=== PATIENT | male | born 1985 ===

== ENCOUNTER 2024-05-25 10:06 | Outpatient (CLI) | payer MEDICAID, SELFPAY ==
[2024-05-25 10:21] VITALS: BP 117/76; PULSE 76; RESP 18; TEMP 36.8; O2SAT 98
[2024-05-25 10:43] VITALS: BP 144/80; PULSE 68; PULSE 72; RESP 8; O2SAT 97
[2024-05-25 10:44] VITALS: PULSE 70; RESP 11; O2SAT 97
[2024-05-25 10:46] VITALS: BP 125/82; PULSE 71; PULSE 80; RESP 9; O2SAT 96
[2024-05-25 10:50] VITALS: PULSE 71; RESP 12; O2SAT 96
--- NOTE | 2024-05-25 10:57 | PDOC.PAIN ---
Date of service: 05/25/24 Time of Service: 10:57 Pain Managment Procedure Note Procedure Note Procedure Note: INTRA-ARTICULAR FACET JOINT INJECTION Tomas Santiago has been referred to the [facility] for intra-articular lumbar facet joint injection. COMMENTS: I previously evaluated him in the clinic. Dx: Lumbar spondylosis without myelopathy Pre-procedure Pain VAS: 7/10 with provocation Patient was interviewed and the medical record reviewed. There were no medical, pharmacologic, radiographic or other structural contraindications to attempting fluoroscopically guided intra-articular lumbar facet joint injection. Risks and expected side effects as well as potential benefit of the procedure were reviewed and voiced concerns addressed. The printed consent form was signed and witnessed. Standard time-out procedure was performed. Patient was placed in the prone position on the fluoroscopy table and automated blood pressure cuff and pulse oximeter applied. The skin entry point for approaching bilateral facet joints at L5-S1 was identified under the most advantageous fluoroscopic view and marked. Following thorough Chlorhexadine preparation of the skin and draping and 1% lidocaine infiltration of the skin entry point and subcutaneous tissues, a 22 gauge spinal needle was placed under fluoroscopic guidance into bilateral facet joint. Intra-articular placement was confirmed by a clear arthrogram resulting from the injection of 0.25ml Omnipaque 240. 40mg Depomedrol (80 mg/cc) followed by 1 cc of 2% Lidocaine were injected intra-articularily with an initial reproduction of a significant component of the usual pain. Vital signs were stable throughout the procedure and were as recorded in the docflowsheet by the nursing staff. If given, dosages of intravenous drugs for anxiolysis and analgesia were documented in MAR. Follow up plans and appointments were discussed. Post procedure instruction was given as documented in nursing documentation and having met discharge criteria,was discharged from the [facility]. COMMENTS: Post-procedure pain VAS was 3/10. Greg Pete DO, MPH [facility] [place]-[facility] CC: RUTH PALOMO
--- NOTE | 2024-05-25 10:59 | DI.RAD_ITS ---
Exam(s) XR PAIN CLINIC LUMBAR SP 2V EXAM: XR PAIN CLINIC LUMBAR SP 2V CLINICAL HISTORY: DX: Lumbar Spondylosis TECHNIQUE: 2D and realtime digital imaging was performed. CONTRAST MATERIAL: Refer to procedure report. COMPARISON: No exams were available for comparison FINDINGS: Fluoroscopy was provided for Dr. Pete during the performance of a bilateral lumbar facet injection. Please refer to the procedure report for complete details. Ka,r=9.03 mGy IMPRESSION: RADIATION DOSE DELIVERED: 0.0 0.0 0
[2024-05-25] MEDS: Nerve Block Tray 1 EACH MC (11:02)
[2024-05-25] MEDS: methylPREDNISolone ACETATE 80 MG/ML VIAL IJ (11:02)
[2024-05-25] MEDS: Lidocaine 2% Pres-Free 5 ML VIAL IJ (11:03)
[2024-05-25] MEDS: Omnipaque 240 MG/ML 50 ML BTL IJ (11:03)
== END 2024-05-25 10:07 | disposition home or self-care (01) ==
LOC: PC 10:06
PROVIDERS: PCP Family Medicine; Visit Provider Preventive Medicine Occupational Medicine
DX: M47.816 Spondylosis without myelopathy or radiculopathy, lumbar region (principal)
CPT/HCPCS: 64493; 72100; J1010; Q9967

== ENCOUNTER 2024-07-10 14:33 | Outpatient (REF) | payer MEDICAID, SELFPAY ==
[2024-07-10 18:04] LABS: Bilirubin Negative (Negative); Blood Trace-lysed (Negative); Clarity Cloudy (Clear); Glucose Negative (Negative); Ketones Negative (Negative); Leukocyte Esterase Negative (Negative); Nitrite Negative (Negative); Specific Gravity >= 1.030 (1.005-1.025); Urobilinogen 0.2 mg/dL (Up to 0.2)
[2024-07-10 18:12] LABS: Bacteria Many HPF (Negative); Epithelial Cells Rare HPF (Negative)
[2024-07-10 18:13] LABS: C & S Indicated? No; Casts Negative LPF (Negative); Crystals Few Amorphous HPF (Negative); Mucus Trace (Negative)
== END 2024-07-10 14:34 | disposition home or self-care (01) ==
LOC: LBN 14:33
PROVIDERS: PCP Family Medicine; Visit Provider Nurse Practitioner Gerontology
DX: R39.9 Unspecified symptoms and signs involving the genitourinary system (principal)
CPT/HCPCS: 81003; 81015

== ENCOUNTER 2024-08-31 12:17 | Outpatient (CLI) | payer MEDICAID, SELFPAY ==
[2024-08-31 12:37] VITALS: BP 116/84; PULSE 85; RESP 18; TEMP 37.1; O2SAT 98
[2024-08-31 13:07] VITALS: PULSE 84; O2SAT 98
[2024-08-31 13:08] VITALS: BP 111/87; PULSE 81; PULSE 83; RESP 10; O2SAT 97
[2024-08-31 13:10] VITALS: PULSE 87; RESP 10; O2SAT 97
[2024-08-31 13:16] VITALS: BP 137/88; PULSE 87; PULSE 88; RESP 12; O2SAT 98
[2024-08-31 13:20] VITALS: PULSE 84; PULSE 85; RESP 9; O2SAT 97
[2024-08-31] MEDS: Omnipaque 240 MG/ML 50 ML BTL IJ (13:30)
[2024-08-31] MEDS: Nerve Block Tray 1 EACH MC (13:30)
[2024-08-31] MEDS: Bupivacaine 0.5% Pres-Free 10 ML VIAL IJ (13:31)
--- NOTE | 2024-08-31 15:48 | PDOC.PAIN ---
Date of service: 08/31/24 Time of Service: 13:00 Pain Managment Procedure Note Procedure Note Procedure Note: PROCEDURE NOTE Bilateral Lumbar Medial Branch Blocks #2 Date of Service: August 31, 2024 Patient: Tomas Santiago Provider: Greg Pete DO, MPH Tomas Santiago has been referred to the [facility] for lumbar medial branch blocks. Pre-operative diagnosis: Lumbar Spondylosis without Myelopathy ICD-10 M47.816 Post-operative diagnosis: Same Pre-procedure pain: VAS= 6/10 COMMENTS: He did well with the first set of blocks using the intra-articular approach. Tomas? was interviewed and the medical records were reviewed. There were no medical, pharmacologic, radiographic or other structural contraindications to attempting fluoroscopically guided local anesthetic lumbar medial branch blocks. Risks and potential side effects were discussed. I also discussed the potential benefit(s) of the procedure with Tomas, and voiced concerns were addressed. After Tomas was completely informed about the procedure, the printed consent form was signed. A standard time-out procedure was performed. Tomas was placed in the prone position on the fluoroscopy table. Automated blood pressure cuff and pulse oximeter were applied. The skin entry points for approaching the anatomic target points of the segmental medial branches of bilateral L4,L5 were identified with fluoroscopy and marked. The skin at the target site area was thoroughly prepared with Chlorhexadine. The skin was then draped. Next, a 25 gauge 3.5 spinal needle was placed under fluoroscopic guidance down on to the target point (the articular pillar) for each respective segmental medial branch. Position was confirmed in A/P and lateral views. Aspiration revealed no blood or clear fluid. Next, 0.25ml of omnipaque 240 was injected at each level. No contrast following a vascular or neural pattern was visualized under continuous fluoroscopy. Next, 0.25 ml of preservative-free 0.5% bupivicaine was injected at each level. There was no unusual discomfort expressed by Tomas. The needles were withdrawn without difficulty. (49 mls of Omnipaque was wasted) Tomas was observed and was without hemodynamic, neurologic, or allergic reactions.? Fluoroscopic images were digitally archived. Provacative testing using the Modified Nuno's facet loading test- Left side Right Side Directly before the block VAS (0-10) = 6/10 VAS (0-10) = 6/10 Five minutes after the block VAS (0-10) = 1/10 VAS (0-10) = 1/10 Percentage relief obtained with this diagnostic block 90% 90% Any improved physical functioning directly after the blocks? Able to move his back with almost no pain Follow up plans and appointments were discussed with Tomas. Tomas was instructed to keep careful note of how the usual pain was modified by these injections. Specifically, to keep a pain diary for the next 4 hours using a numeric pain scale of 0-10 and report these results. Post procedure instruction was given as documented in the nursing documentation and having met discharge criteria, the patient was discharged from the [facility]. Based on the medial branches blocked today, if they patient has adequate relief and we are able to proceed to radiofrequency ablation, the treatment should result in the denervation of the bilateral L5-S1 facet joints. We would expect to denervate a total of 2 facets during the radiofrequency ablation. COMMENTS: No apparent complications. Post-procedure pain: VAS= 1/10 Tomas will call back with 0-4 hour post-procedure pain scores. I personally performed the entire procedure. GREG PETE DO, MPH [employer]-subspecialty board certification in Pain Medicine [facility] [facility]
--- NOTE | 2024-08-31 18:00 | DI.RAD_ITS ---
Exam(s) XR PAIN CLINIC LUMBAR SP 2V EXAM: XR PAIN CLINIC LUMBAR SP 2V CLINICAL HISTORY: DX: Lumbar Spondylosis TECHNIQUE: 2D and realtime digital imaging was performed. Radiologist not present. CONTRAST MATERIAL: None. COMPARISON: No exams were available for comparison FINDINGS: Fluoroscopy was provided for pain management therapy. Please refer to procedure report or details. Radiation Exposure Index: Ka,r=13.19 mGy IMPRESSION: As above. RADIATION DOSE DELIVERED:
== END 2024-08-31 12:18 | disposition home or self-care (01) ==
LOC: PC 12:17
PROVIDERS: PCP Family Medicine; Visit Provider Preventive Medicine Occupational Medicine
DX: M47.816 Spondylosis without myelopathy or radiculopathy, lumbar region (principal)
CPT/HCPCS: 64493; 72100; J0665; Q9967

== ENCOUNTER 2024-10-12 11:31 | Outpatient (CLI) | payer MEDICAID, SELFPAY ==
[2024-10-12] VITALS (16 sets, daily range): BP systolic 117–136; BP diastolic 69–97; PULSE 67–87; RESP 13–21; TEMP 37; O2SAT 95–98
[2024-10-12] MEDS: Midazolam 2 MG/2 ML VIAL IVP (12:20)
[2024-10-12] MEDS: fentaNYL 100 MCG/2 ML VIAL IVP (12:20)
[2024-10-12] MEDS: Lactated Ringers 500 ML 80 ML IV (12:45)
[2024-10-12] MEDS: Bupivacaine 0.5% Pres-Free 10 ML VIAL IJ (13:04)
[2024-10-12] MEDS: methylPREDNISolone ACETATE 40 MG/ML VIAL IJ (13:05)
[2024-10-12] MEDS: Lidocaine 2% Pres-Free 5 ML VIAL IJ (13:05)
--- NOTE | 2024-10-12 13:05 | DI.RAD_ITS ---
Exam(s) XR PAIN CLINIC LUMBAR SP 2V EXAM: XR PAIN CLINIC LUMBAR SP 2V CLINICAL HISTORY: DX: Lumbar Spondylosis. TECHNIQUE: Fluoroscopy was provided for the referring physician for guidance with performing pain cl inic injection procedure. COMPARISON: No exams were available for comparison FINDINGS: Please see procedure note for details. Fluoro time: 72.8 seconds RADIATION DOSE DELIVERED: Ednar=18.54 mGy
--- NOTE | 2024-10-12 13:06 | PDOC.PAIN_ITS ---
Date of service: 10/12/24 Time of Service: 13:06 Pain Managment Procedure Note Procedure Note Procedure Note: PROCEDURE NOTE BILATERAL LUMBAR RADIOFREQUENCY ABLATION Date of Service: October 12, 2024 Patient:? Tomas Santiago? Provider:? Greg Lopez DO, MPH Tomas Santiago has been referred to the [facility] for Bilateral Lumbar Radiofrequency Ablation with the [employer] Machine.? Pre Operative Diagnosis: Lumbosacral Spondylosis without Myelopathy ICD-10 M47.816 Post Operative Diagnosis: Same Pre procedure pain; VAS= 7/10 Comments: Great relief with LMBBs X 2 (05/25/24 and 08/31/24) PROCEDURE: Radiofrequency Ablation of medial branches - bilateral L3, L4, L5 and lateral branches of bilateral S1. Tomas?was interviewed and the medical record was reviewed.? There were no medical, pharmacologic, radiographic or other structural contraindications to attempting fluoroscopically guided BILATERAL Lumbar Radiofrequency Ablation.?Risks and expected side effects as well as potential benefit of the procedure were reviewed with Tomas, and the patient's voiced concerns were addressed.? The printed consent form was signed.? Standard time-out procedure was performed. Tomas was brought into the fluoroscopy suite and positioned into the prone position on the fluoroscopy table and allowed to adjust to a position of comfort. A grounding pad was placed on the left abdomen. The sterile field was prepared using chlorhexidine preparation of the skin and sterile draping. Local anesthesia superficial and deep was provided by local infiltration of 2% lidocaine. A 17g 100 mm radiofrequency introducer needle was placed to the planned anatomic targets guided with intermittent fluoroscopy with a perpendicular approach to terminally place at the junction of the superior articular process and the transverse process of the bilateral L4, L5, the base of the sacral ala on the bilateral for the L5 medial branch nerve and the area between base of the sacral ala to the S1 foramen bilaterally. The stylets were removed and radiofrequency probes with a 4mm active tip were then inserted. Needle tip position of the probes was verified in the AP, oblique, and lateral views. At each site, the medial branch nerve was stimulated at 2 Hz to a maximum 1-2 volts determined to finalize safe needle and electrode placement. The patient was awake and responsive during this portion of the procedure. Each target was anesthetized with 1-2 mL of 2 % Lidocaine for anesthesia for lesioning and then each target was lesioned at 80 degrees Celsius for 2 minutes and 30 seconds. Tissue impedances were noted to be between 250 and 500 Ohms. Next, I injected 1/4 cc of Depomedrol (40 mg/cc) followed by 1 cc of 0.5% Bupivacaine to each segmental sensory nerve. There was no unusual discomfort expressed by Tomas. The needles were withdrawn without difficulty and bandages placed over the needle placement sites, the patient was observed and was without hemodynamic, neurologic, or allergic reactions. Fluoroscopic images were digitally archived. POST PROCEDURE EVALUATION: IMPRESSION: 1. Summary of procedure. Medication given is documented in the MAR. 2. Follow up plan: Tomas to contact [facility] as needed.?This procedure may be repeated if the patient achieves at least 50% improvement in pain/function for at least 6 months. 3. Estimated Blood Loss: <5 mls 4. Fluoroscopy time: Documented in the EMR. Follow up plans and appointments were discussed with the Tomas. Post procedure instruction was given as documented in nursing documentation and having met discharge criteria, Tomas was discharged from the [facility]. This advanced procedure uses cooled radiofrequency energy to safely target the sensory nerves responsible for sending pain signals.1 A radiofrequency generator transmits a small current of Radiofrequency energy through an insulated electrode, or probe, placed within tissue. Ionic heating, produced by the friction of charged molecules, thermally deactivates the nerves responsible for sending pain signals to the brain. Radiofrequency energy heats and cools the tissue at the site of pain. Unlike other Radiofrequency procedures, Coolief circulates water through the device while heating nervous tissue to create a larger treatment area, increasing the opportunity to help with pain. This combination targets the pain- transmitting nerves without excessive heating, leading to pain relief. COMMENTS: No apparent complications. Post-procedure pain: VAS= 4/10. I personally completed the entire procedure. GREG LOPEZ DO, MPH [employer] - Subspecialty board certification in Pain Medicine [facility] Coding Conscious Sedation used for procedure: Yes CPT Codes: Single Facet Joint, Lumbar/Sacral *BILATERAL* - 052879X ([id number]~G) Single Facet Joint, Lumbar/Sacral cool each add'l - 54564V ([id number]~G) Additional Codes: Date of Service (63327) Date of service: 10/12/24
== END 2024-10-12 11:32 | disposition home or self-care (01) ==
LOC: PC 11:32
PROVIDERS: PCP Nurse Practitioner Family; Visit Provider Preventive Medicine Occupational Medicine
DX: M47.816 Spondylosis without myelopathy or radiculopathy, lumbar region (principal)
CPT/HCPCS: 64635; 64636; 72100; J0665; J1010; J2250; J3010

== ENCOUNTER 2025-01-08 07:57 | Outpatient (CLI) | payer MEDICAID, SELFPAY ==
--- NOTE | 2025-01-08 07:45 | RT.EKG_ITS ---
APPROVED REPORT Exam: Resting ECG Reason for Exam: palpitations Patient Location: O HR:88 bpm ECG Measurements Heart Rate 88 AXIS HI 136 P 58 QRSd 86 QRS 17 QT 322 T 9 QTc 390 Conclusion Sinus rhythm...normal P axis, V-rate 50- 99 Normal Electrocardiogram
== END 2025-01-08 07:58 | disposition home or self-care (01) ==
LOC: DI.CARD 07:57
PROVIDERS: PCP Nurse Practitioner Family; Visit Provider Registered Nurse
DX: R00.2 Palpitations (principal)
CPT/HCPCS: 93010

== ENCOUNTER 2025-03-29 03:16 | Outpatient (CLI) | payer MEDICAID, SELFPAY ==
--- NOTE | 2025-03-29 12:30 | DI.US_ITS ---
APPROVED REPORT EXAM: Comprehensive 2D, Doppler, and color-flow Echocardiogram Patient Location: Out-Patient Pipe Turner: Melvin Barnard RDCS (AE) Indications: Chest pain, dyspnea, SVT Other Information Study Quality: Adequate Conclusion Normal left ventricular wall thickness and chamber size. Ejection fraction is 60%. Wall motion is normal Normal right ventricular size and function Both atria are normal in size There are no structural valvular abnormalities Trace to mild mitral regurgitation Mild tricuspid regurgitation. Estimated right ventricular systolic pressure is 18 mmHg Wall motion Left Ventricle The left ventricle is normal size. The left ventricular systolic function is normal. The left ventricular ejection fraction is within the normal range. There is normal left ventricular wall thickness. There is normal LV segmental wall motion. There is no ventricular septal defect visualized. LVEF is 60%. Right Ventricle The right ventricle is normal size. The right ventricular systolic function is normal. Atria The left atrium size is normal. The right atrium size is normal. The interatrial septum is intact with no evidence for an atrial septal defect. Aortic Valve The aortic valve is normal in structure. Aortic valve is trileaflet. There is no aortic valvular stenosis. No aortic regurgitation is present. Mitral Valve The mitral valve is normal in structure. No evidence of mitral valve stenosis. Trace to mild mitral regurgitation. Tricuspid Valve The tricuspid valve is normal in structure. There is no tricuspid valve stenosis. Mild tricuspid regurgitation. The RVSP is 18.2 mmHg. Pulmonic Valve The pulmonary valve is normal in structure. There is no pulmonic valvular stenosis. Mild pulmonic regurgitation. Great Vessels The aortic root is normal in size. The ascending aorta is normal in size. Aortic arch is normal in caliber. IVC is normal in size and collapses >50% with inspiration. Pericardium There is no pericardial effusion. 2D Dimensions IVSD d PLAX 0.68 cm M: 0.6-1.2 Ao Root d 2.81 cm M: 3.1 - 3.7 LVPW d PLAX 0.71 cm M: 0.6 - 1.2 Ao Asc Diam d 3.03 cm M: 2.6 - 3.4 LVID d PLAX 4.54 cm M: 4.2 - 5.8 LVDs 3.09 cm M: 2.5 - 4.0 LV EF Teichholz 60.0 % FS 31.82 % LV EDV (Teich) 94.2 mL LV ESV (Teich) 37.7 mL Stroke Vol Index (Teich) 27.18 M-Mode TAPSE 1.97 cm (M/F) >1.7 Auto EF LV EDV A4C 122.6 mL LV EDV A2C 116.9 mL LV EDV BP 124.7 mL LV ESV A4C 54.0 mL LV ESV A2C 47.2 mL LV ESV BP 53.2 mL LVEF(%) A4C 56.0 % LVEF(%) A2C 59.6 % LVEF(%) BP 57.4 % LV SV A4C 68.6 ml LV SV A2C 69.7 ml LV SV BP 71.6 ml LV CO A4C 4.4 L/min LV CO A2C 4.4 L/min LV CO BP 4.4 L/min HR A4C 64.06 BPM HR A2C 63.49 BPM LV EDV Index (BP) LA Volume LA Length A4C 5.5 cm LA Length A2C 5.0 cm LA Area A4C s 14.78 cm2 LA Area A2C s 15.54 cm2 LA Vol A4C A-L 33.66 mL LA Vol A2C A-L 41.23 mL LA Vol Biplane A-L 39.2 mL LA Vol/BSA A4C A-L LA Vol/BSA A2C A-L LA Vol/BSA BP A-L 18.9 mL/m2 LA Vol A4C MOD 31.8 mL LA Vol A2C MOD 38.8 mL LA Vol BP MOD 36.6 mL RA Volume RA Area A4C 9.2 cm2 RA ESV A4C (A-L) 15.8mL RA Vol/BSA A4C A-L RA Length A4C 4.5 cm RA ESV A4C (MOD) 16.3mL LV Diastology MV E' medial 0.142 (>0.07 m/s) MV E Vmax 0.71 (0.4-1.3 m/s) MV E/E' MED 5.02 (<14) MV A Vmax 0.35 (0.4-1.3 m/s) MV E' lateral 0.170 (>0.1 m/s) E/A Ratio 2.0 MV E/E' LAT 4.20 (<14) MV E' Average 0.156 m/s MV E/E'(average) 4.58 Aortic Valve AoV Vmax 0.97 m/s LVOT Vmax 0.92 m/s AoV Peak Grad 3.8 mmHg LVOT Peak Grad 3.4 mmHg AoV Area (Vmax) 3.85 cm2 LVOT VTI 0.181 m AoV VTI 0.202 m LVOT Mean Grad 2.1 mmHg AoV Mean Shane. 0.66 m/s LVOT SV 73.47 mL AoV Mean Grad 2.0 mmHg LVOT Diam s 2.25 cm AoV Area (VTI) 3.63 cm2 AV Regurg Peak Gr. 3.75 mmHg Velocity Ratio 0.95 Mitral Valve MV DT 205 (160-240 msec) Pulmonary Valve PV Vmax 0.85 (0.5-1.5 m/s) RVOT Vmax 0.79 m/s PV Peak Grad 2.9 mmHg RVOT Peak Gr. 2.5 mmHg PV Mean Shane 0.71 m/s RVOT VTI 0.157 m PV Mean Grad 2.1 mmHg RVOT Mean Gr. 1.6 mmHg Tricuspid Valve RA Pressure 3.00 mmHg TR Vmax 1.95 m/s TR Peak Grad 15.2 mmHg RVSP (TR) 18.2 mmHg
== END 2025-03-29 03:36 ==
LOC: DI 03:16
PROVIDERS: PCP Nurse Practitioner Family; Visit Provider Internal Medicine Cardiovascular Disease
DX: I47.10 Supraventricular tachycardia, unspecified (principal); R07.9 Chest pain, unspecified; R06.00 Dyspnea, unspecified
CPT/HCPCS: 93306

== ENCOUNTER 2025-04-09 07:23 | Outpatient (CLI) | payer MEDICAID, SELFPAY ==
--- NOTE | 2025-04-09 05:15 | ETT_ITS ---
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 Rest Stress HR Resting HR Supine: 83 bpm Max Heart Rate (APMHR): 181 bpm Resting HR Standin bpm Target HR (85% APMHR): 154 bpm Max HR Achieved: 164 bpm % of APMHR: 91 Recovery HR: 104 bpm HR response to stress: Normal HR response to stress BP Resting BP Supine: 110/70 mmHg Resting BP Standin/78 mmHg Max BP: 150/90 mmHg Recovery BP: 120/72 mmHg BP response to stress: Normal blood pressure response to stress. ECG Resting ECG: Sinus Rhythm Stress ECG: Sinus Tachycardia ST Change: No significant ST segment changes noted Recovery ECG: Sinus Tachycardia Recovery ST Change: No significant ST segment changes noted Clinical Reason for Termination: Mod SOB Stress Symptoms: Mod SOB Exercise duration: 09 min39 sec Highest Stage Reached: Stage 3: 3.4 mph at 14% grade. Exercise capacity: 11.23 METs Angina Score: None Jin Treadmill Score: 9.1 Rate Pressure Product: 12215 Stress ECG Conclusion 1. Resting electrocardiogram was normal 2. Patient exercised on the Medardo protocol completed workload of 11 METS 3. Normal heart rate and blood pressure response to exercise. The patient achieved 91% of maximal predicted heart rate for age 4. There was no electrocardiographic evidence of myocardial ischemia 5. There were no significant dysrhythmias Jin Treadmill Score is 9.1 which is Low risk. Stress Test Summary STAGE Time (mins) Speed (mph) Grade (%) HR BP SpO2 SYMPTOMS METS Supine 83 110/70 96% Standing 86 116/78 1 3 1.7 10 114 120/80 97% 4.5 2 6 2.5 12 129 140/88 96% 7 3 9 3.4 14 154 150/90 96% Mild SOB 10 4 12 4.2 16 162 Mod SOB 13 1 min recovery 146 154/80 95% Mod SOB 3 min recovery 109 128/76 96% 6 min recovery 104 120/72 95% All symptoms resolved Patient requested to stop r/t SOB. SOB resolved at test end. Patient left ambulatory in no apparent distress.
== END 2025-04-09 07:43 ==
LOC: DI 07:23
PROVIDERS: PCP Nurse Practitioner Family; Visit Provider Internal Medicine Cardiovascular Disease
DX: R07.9 Chest pain, unspecified (principal)
CPT/HCPCS: 93017